=== PATIENT | female | born 1950 | race Caucasian/White ===

== ENCOUNTER → 2018-02-09 | Outpatient (CLI) | payer MEDICARE ==
[~2018-02-09] MED LIST: CIPRO250 MG PO; CIPROFLOXACIN500 MG PO; DICYCLOMINE HCL10 MG; DYAZIDE 25 MG-31 CAP PO; FLAGYL500 MG PO; HYDROCODONE BIT1 T11 PO; LODINE 400MG400 MG; MOBIC7.5 MG PO; MULTIVITAMIN FO1 CAP; NORVASC5 MG PO; PERCOCET 325 MG1 TA2; ROBAXIN750 MG PO; ULTRAM50 MG PO; VICODIN 5/500 505 MG PO; VOLTAREN11 PO; ZETIA10 MG PO; Zofran4 MG PO
[2018-02-09 10:41] LABS: BASO # 0.1 10*3/uL (0.0-0.1); BASO % 0.7 % (0.0-1.0); EOS # 0.1 10*3/uL (0.0-0.4); EOS % 1.3 % (1.0-4.0); HEMATOCRIT 45.7 % (37.0-47.0); HEMOGLOBIN 14.8 g/dl (12.0-16.0); LYMPH # 2.6 10*3/uL (1.3-4.4); LYMPH % 29.4 % (27.0-41.0); MEAN CELL VOLUME 93.3 fl (81.0-99.0); MEAN CORPUSCULAR HGB 30.2 pg (27.0-31.0); MEAN CORPUSCULAR HGB CONC 32.4 g/dl (33.0-37.0); MEAN PLATELET VOLUME 12.1 fl (9.6-12.3); MONO # 0.5 10*3/uL (0.1-1.0); MONO % 5.9 % (3.0-9.0); NEUT # 5.5 10*3/uL (2.3-7.9); NEUT % 62.2 % (47.0-73.0); PLATELET COUNT AUTOMATED 142 10*3/uL (130-400); RED CELL DISTRI WIDTH 12.7 % (0-14.5); WHITE BLOOD COUNT 8.8 10*3/uL (4.8-10.8)
[2018-02-09 11:08] LABS: POTASSIUM 3.6 mmol/L (3.5-5.1)
[2018-02-09 11:27] LABS: ALBUMIN 3.6 gm/dl (3.1-4.5); CREATININE 1.18 mg/dL (0.55-1.02); THYROID STIM HORMONE (HS) 2.48 uIU/ml (0.358-4.75); TOTAL PROTEIN 6.8 gm/dL (6.4-8.2)
== END | disposition home or self-care (01) ==
LOC: LAB 09:28
PROVIDERS: Internal Medicine
DX: M51.36 Other intervertebral disc degeneration, lumbar region (principal); M43.26 Fusion of spine, lumbar region; E11.9 Type 2 diabetes mellitus without complications; E55.9 Vitamin D deficiency, unspecified; E78.2 Mixed hyperlipidemia

== ENCOUNTER 2018-03-10 16:46 | Emergency (ER) | payer MEDICARE ==
[~2018-03-10] VITALS: Ht 170.1 cm; Wt 131.5 kg
[2018-03-10] MEDS ORDERED: SIMVASTATIN5 MG PO (16:52)
[2018-03-10] MEDS ORDERED: CYCLOBENZAPRINE10 MG PO (16:52)
[2018-03-10] MEDS ORDERED: HYDROCHLOROTHIA25 M1 PO (16:53)
[2018-03-10] MEDS ORDERED: AMARYL2 MG PO (16:53)
[2018-03-10] MEDS ORDERED: VITAMIN D-32000 UNI1 PO (16:54)
== END 2018-03-10 19:25 | disposition home or self-care (01) ==
LOC: ED 16:46
DX: M16.12 Unilateral primary osteoarthritis, left hip (principal); M25.552 Pain in left hip; F17.200 Nicotine dependence, unspecified, uncomplicated; Z79.899 Other long term (current) drug therapy; Z91.041 Radiographic dye allergy status

== ENCOUNTER → 2018-07-06 | Outpatient (CLI) | payer MEDICARE, MEDICAID ==
[~2018-07-06] MED LIST changes: +AMARYL2 MG PO; +CYCLOBENZAPRINE10 MG PO; +HYDROCHLOROTHIA25 M1 PO; +SIMVASTATIN5 MG PO; +VITAMIN D-32000 UNI1 PO; +ZOCOR10 MG PO
--- NOTE | ~2018-07-06 | PF ---
[place], [place] PULMONARY FUNCTION TEST [id number] UNIT #: [id number] ROOM: DOCTOR: GIGI DESAI MD,MAXIM BIRTHDATE: [birth year] DOS: 07/06/2018 THE TESTING WAS ORDERED BY: Ariela Urias. HISTORY: The patient reported a 67-year-old female, height of 67 inches, weight of 280 pounds. The symptoms are noted as shortness of breath and productive cough. The patient noted tobacco use, half pack of cigarettes per day for 35 years back. SPIROMETRY: The FVC was recorded 2.70 liters, 85% predicted value. The FEV1 of 2.02 liters, 83% predicted value. Ratio of FEV1/FVC recorded 75% post-bronchodilator, no significant improvement occurred. LUNG VOLUME: Thoracic gas volume recorded as 75%, residual volume 87%, total lung capacity 87%. The patient lung diffusion was recorded 47%, moderately decreased without correction of carbon monoxide and hemoglobin values. The patient's airway resistance and passive conductance was noted normal. FINAL IMPRESSION: Normal pulmonary function tests were noted except reduction of the lung deficient, etiology unclear. Clinical correlation would be advised with the patient's history and radiology data. MAXIM YU MD CM:PFREPORT:PULMONARY FUNCTION TEST [id number] MAXIM DESAI MD
[2018-07-06 09:57] LABS: BASO # 0.1 10*3/uL (0.0-0.1); BASO % 0.7 % (0.0-1.0); EOS # 0.2 10*3/uL (0.0-0.4); EOS % 1.6 % (1.0-4.0); HEMATOCRIT 46.7 % (37.0-47.0); HEMOGLOBIN 15.7 g/dl (12.0-16.0); LYMPH # 2.4 10*3/uL (1.3-4.4); LYMPH % 24.9 % (27.0-41.0); MEAN CORPUSCULAR HGB 31.3 pg (27.0-31.0); MEAN CORPUSCULAR HGB CONC 33.6 g/dl (33.0-37.0); MEAN PLATELET VOLUME 11.7 fl (9.6-12.3); MONO # 0.6 10*3/uL (0.1-1.0); MONO % 6.6 % (3.0-9.0); NEUT # 6.3 10*3/uL (2.3-7.9); NEUT % 65.8 % (47.0-73.0); PLATELET COUNT AUTOMATED 139 10*3/uL (130-400); RED BLOOD COUNT 5.02 10*6/uL (4.10-5.10); RED CELL DISTRI WIDTH 12.6 % (0-14.5); WHITE BLOOD COUNT 9.6 10*3/uL (4.8-10.8)
[2018-07-06 10:05] LABS: ALBUMIN 3.5 gm/dl (3.1-4.5); POTASSIUM 3.4 mmol/L (3.5-5.1)
[2018-07-06 10:18] LABS: CREATININE 1.17 mg/dL (0.55-1.02); TOTAL PROTEIN 6.8 gm/dL (6.4-8.2)
== END | disposition home or self-care (01) ==
LOC: LAB 08:47 → MAMMO 09:30
PROVIDERS: Family Medicine
DX: Z12.31 Encounter for screening mammogram for malignant neoplasm of breast (principal); I10 Essential (primary) hypertension; E78.5 Hyperlipidemia, unspecified; R06.02 Shortness of breath

== ENCOUNTER → 2018-08-26 | Day surgery (SDC) | payer MEDICARE, MEDICAID ==
[~2018-08-26] VITALS: Ht 170.1 cm; Wt 124.7 kg
--- NOTE | ~2018-08-26 | O ---
[place], [place] OPERATIVE NOTE [id number] UNIT #: [id number] ROOM: DOCTOR: SLICK LUNA,VINICIO BIRTHDATE: [birth year] DOS: 08/26/2018 GASTROENDOSCOPIC REPORT INDICATIONS: This is a 67-year-old patient who was presented with chief complaint of history of colonic polyp, undergoing investigation. ____ was 6 years ago. ALLERGIES: IVP DYE. FAMILY HISTORY: Noncontributory. PAST SURGICAL HISTORY: Back surgery, right hip replacement. PAST MEDICAL HISTORY: Hypertension, diabetes mellitus, degenerative joint disease. SOCIAL HISTORY: Active smoker, nonalcohol consumer. PROCEDURE: Today's procedure part of investigation is colonoscopy plus snare polypectomy and piecemeal polypectomy x 2. PREMEDICATION: Propofol. SCOPE: Olympus forward-viewing colonoscope 10L video. REPORT: After putting the patient in the left lateral position and application of lubricant to the scope, scope was introduced; thereafter, under direct visualization, I advanced through the length of sigmoid colon, which is hosted with many diverticula and angulation. This, however overcame, scope was negotiated to proximal sigmoid colon, a polypoid lesion with a snare was polypectomized. Another polypoid lesion with piecemeal polypectomy was polypectomized. Base of the cecum explored, appendiceal orifice identified. Ileocecal valve was defined. Scope was gradually withdrawn from ascending, transverse, descending colon. The patient extubated, tolerated the procedure well. IMPRESSION: Severe diverticulosis sigmoid colon. Two polyps in sigmoid colon. One polypectomized with snare, one polypectomized with piecemeal polypectomy, samples recovered. PLAN: High fiber diet, low fat diet, to avoid smoking. FOLLOWUP: Routinely with you in office, p.r.n. visit with us in [facility]. [place], [place] OPERATIVE NOTE NAME: [facility] [id number] UNIT #: [id number] ROOM: DOCTOR: SLICK LUNA,VINICIO BIRTHDATE: [birth year] VINICIO KRUGER MD CM:OPRECORD:OPERATIVE NOTE [id number] VINICIO KRUGER MD 08/26/18 1155 interface
[2018-08-26 07:19] VITALS: BP 108/63
[2018-08-26 09:04] VITALS: BP 143/98
[2018-08-26 09:20] VITALS: BP 140/88
[2018-08-26 09:35] VITALS: BP 129/68
== END | disposition home or self-care (01) ==
LOC: SDC 08-24 08:45
DX: Z12.11 Encounter for screening for malignant neoplasm of colon (principal); Z86.010 Personal history of colon polyps; K57.30 Diverticulosis of large intestine without perforation or abscess without bleeding; D12.5 Benign neoplasm of sigmoid colon; I10 Essential (primary) hypertension; E11.9 Type 2 diabetes mellitus without complications; J45.909 Unspecified asthma, uncomplicated; E66.09 Other obesity due to excess calories; M19.90 Unspecified osteoarthritis, unspecified site; Z98.890 Other specified postprocedural states; F17.210 Nicotine dependence, cigarettes, uncomplicated; Z96.641 Presence of right artificial hip joint; Z79.899 Other long term (current) drug therapy; Z91.041 Radiographic dye allergy status; Z83.3 Family history of diabetes mellitus; Z82.49 Family history of ischemic heart disease and other diseases of the circulatory system; Z68.41 Body mass index [BMI] 40.0-44.9, adult

== ENCOUNTER → 2021-07-13 | Outpatient (CLI) | payer MEDICARE ==
[~2021-07-13] MED LIST changes: +AUGMENTIN 875875 MG PO
[2021-07-13 12:22] LABS: BUN 26 mg/dl (7-24); CHLORIDE 106 mmol/L (98-107); CREATININE 0.91 mg/dL (0.55-1.02); POTASSIUM 3.1 mmol/L (3.5-5.1); SODIUM 140 mmol/L (136-145)
[2021-07-14 10:07] LABS: CREATININE,URINE 61.8 mg/dL (Not Estab.)
[2021-07-19 13:06] LABS: RENIN ACTIVITY (PLASMA) 20.947 ng/mL/hr (0.167-5.380)
== END | disposition home or self-care (01) ==
LOC: LAB 11:40
PROVIDERS: ATTEND Family Medicine
DX: E11.65 Type 2 diabetes mellitus with hyperglycemia (principal)

== ENCOUNTER → 2021-08-13 | Outpatient (CLI) | payer MEDICARE | END | disposition home or self-care (01) | LOC: US 14:00 | PROVIDERS: ATTEND Family Medicine | DX: N28.1 Cyst of kidney, acquired (principal); N26.1 Atrophy of kidney (terminal); I10 Essential (primary) hypertension; N32.89 Other specified disorders of bladder ==